=== PATIENT | female | born 1950 | race Caucasian/White ===

== ENCOUNTER 2017-04-15 07:13 | Outpatient (CLI) | payer OTHER | END 2017-04-15 07:32 | disposition home or self-care (01) | LOC: NUCLEAR 07:13 | DX: I11.9 Hypertensive heart disease without heart failure (principal); I25.9 Chronic ischemic heart disease, unspecified; E11.65 Type 2 diabetes mellitus with hyperglycemia | CPT/HCPCS: 78452; 93017; A9500; J1250 ==

== ENCOUNTER 2023-03-24 07:27 | Outpatient (CLI) | payer OTHER | END 2023-03-24 07:28 | disposition home or self-care (01) | LOC: NUCLEAR 07:27 | PROVIDERS: ATTEND Specialist | DX: I11.9 Hypertensive heart disease without heart failure (principal); N28.9 Disorder of kidney and ureter, unspecified | CPT/HCPCS: 78452; 93017; A9500; J0153 ==

== ENCOUNTER 2023-03-31 11:04 | Outpatient (CLI) | payer OTHER | END 2023-03-31 11:06 | disposition home or self-care (01) | LOC: NUCLEAR 11:04 | PROVIDERS: ATTEND Internal Medicine | DX: I50.30 Unspecified diastolic (congestive) heart failure (principal); I10 Essential (primary) hypertension | CPT/HCPCS: 78472; A9538 ==

== ENCOUNTER 2024-09-29 07:56 | Outpatient (CLI) | payer OTHER | END 2024-09-29 07:57 | disposition home or self-care (01) | LOC: NUCLEAR 07:56 | PROVIDERS: ATTEND Internal Medicine | DX: I50.30 Unspecified diastolic (congestive) heart failure (principal); I10 Essential (primary) hypertension | CPT/HCPCS: 78452; A9500 ==

== ENCOUNTER 2024-12-13 07:19 | Outpatient (CLI) | payer OTHER | END 2024-12-13 07:20 | disposition home or self-care (01) | LOC: NUCLEAR 07:19 | PROVIDERS: ATTEND Internal Medicine | DX: I20.9 Angina pectoris, unspecified (principal) | CPT/HCPCS: 78452; 93017; A9500; J0153 ==